=== PATIENT | female | born 1930 | race Caucasian/White ===

== ENCOUNTER → 2016-07-04 | Outpatient (CLI) | payer MEDICARE, OTHER ==
[2016-07-04 13:32] LABS: AUTOMATED NEUTROPHIL # 2.9 TH/MM3 (1.8-7.7); BASOPHIL # 0.1 TH/MM3 (0-0.2); BASOPHIL % 1.2 % (0.0-2.0); EOSINOPHIL # 0.4 TH/MM3 (0-0.4); EOSINOPHIL % 5.9 % (0.0-4.0); HEMATOCRIT 32.8 % (35.0-46.0); HEMO FLAGS DIFF FINAL; LYMPH % 33.2 % (9.0-44.0); MEAN CELL VOLUME 82.7 FL (80.0-100.0); MEAN CORPUSCULAR HEMOGLOBIN 27.6 PG (27.0-34.0); MEAN CORPUSCULAR HGB CONC 33.4 % (32.0-36.0); MONO % 12.2 % (0.0-8.0); NEUT % 47.5 % (16.0-70.0); PLATELET COUNT 249 TH/MM3 (150-450); RED BLOOD COUNT 3.97 MIL/MM3 (4.00-5.30); WHITE BLOOD COUNT 6.1 TH/MM3 (4.0-11.0)
[2016-07-04 14:02] LABS: ALKALINE PHOSPHATASE 61 U/L (45-117); ALT (GPT) 21 U/L (10-53); ANION GAP 6 MEQ/L (5-15); AST (GOT) 23 U/L (15-37); BLOOD UREA NITROGEN 21 MG/DL (7-18); CHLORIDE 108 MEQ/L (98-107); GLOMERULAR FILTRATION RATE 44 ML/MIN (>89); GLUCOSE,FASTING 108 MG/DL (74-99); HDL CHOLESTEROL 45.4 MG/DL (40.0-60.0); LDL CHOLESTEROL 73 MG/DL (0-99); POTASSIUM 4.2 MEQ/L (3.5-5.1); SODIUM (NA) 141 MEQ/L (136-145); TOTAL BILIRUBIN ADULT 0.4 MG/DL (0.2-1.0)
[2016-07-04 15:59] LABS: HEMOGLOBIN A1a 1.3 %; HEMOGLOBIN A1b 0.9 %; HEMOGLOBIN Ao 82.3 %; HEMOGLOBIN F 1.2 %; HEMOGLOBIN LA1C 2.1 %; HEMOGLOBIN P3 4.3 %
== END ==
LOC: PLAB 09:10
PROVIDERS: ATTEND Family Medicine
DX: E78.2 Mixed hyperlipidemia (principal); N18.2 Chronic kidney disease, stage 2 (mild); E11.22 Type 2 diabetes mellitus with diabetic chronic kidney disease; E11.51 Type 2 diabetes mellitus with diabetic peripheral angiopathy without gangrene; E03.8 Other specified hypothyroidism
CPT/HCPCS: 36415; 80053; 80061; 83036; 84443; 85025

== ENCOUNTER → 2016-10-16 | Outpatient (CLI) | payer MEDICARE, OTHER ==
[2016-10-16 13:22] LABS: ANION GAP 7 MEQ/L (5-15); BICARBONATE 26.1 MEQ/L (21.0-32.0); BLOOD UREA NITROGEN 23 MG/DL (7-18); CHLORIDE 108 MEQ/L (98-107); GLOMERULAR FILTRATION RATE 42 ML/MIN (>89); GLUCOSE,FASTING 134 MG/DL (74-99); POTASSIUM 4.2 MEQ/L (3.5-5.1); SODIUM (NA) 141 MEQ/L (136-145)
[2016-10-16 13:33] LABS: FREE T4 1.07 NG/DL (0.76-1.46)
[2016-10-16 17:22] LABS: HEMOGLOBIN A1a 1.5 %; HEMOGLOBIN A1b 0.9 %; HEMOGLOBIN Ao 83.1 %; HEMOGLOBIN F 1.1 %; HEMOGLOBIN LA1C 2.4 %; HEMOGLOBIN P3 4.4 %
== END ==
LOC: PLAB 08:27
DX: E11.65 Type 2 diabetes mellitus with hyperglycemia (principal); E03.9 Hypothyroidism, unspecified
CPT/HCPCS: 36415; 80048; 83036; 84439; 84443; 84681

== ENCOUNTER → 2016-12-17 | Outpatient (CLI) | payer MEDICARE, OTHER ==
[2016-12-17 13:18] LABS: AUTOMATED NEUTROPHIL # 4.1 TH/MM3 (1.8-7.7); BASOPHIL # 0.1 TH/MM3 (0-0.2); BASOPHIL % 1.3 % (0.0-2.0); EOSINOPHIL # 0.4 TH/MM3 (0-0.4); HEMATOCRIT 35.9 % (35.0-46.0); HEMO FLAGS DIFF FINAL; LYMPH % 30.5 % (9.0-44.0); LYMPHOCYTE # 2.4 TH/MM3 (1.0-4.8); MEAN CELL VOLUME 84.9 FL (80.0-100.0); MEAN CORPUSCULAR HEMOGLOBIN 27.4 PG (27.0-34.0); MEAN CORPUSCULAR HGB CONC 32.2 % (32.0-36.0); MONO % 9.7 % (0.0-8.0); NEUT % 53.5 % (16.0-70.0); PLATELET COUNT 258 TH/MM3 (150-450); RED BLOOD COUNT 4.23 MIL/MM3 (4.00-5.30); RED CELL DISTRIBUTION WIDTH 16.2 % (11.6-17.2); WHITE BLOOD COUNT 7.7 TH/MM3 (4.0-11.0)
[2016-12-17 13:49] LABS: ANION GAP 8 MEQ/L (5-15); AST (GOT) 19 U/L (15-37); BLOOD UREA NITROGEN 23 MG/DL (7-18); CHLORIDE 109 MEQ/L (98-107); GLOMERULAR FILTRATION RATE 46 ML/MIN (>89); GLUCOSE,FASTING 112 MG/DL (74-99); POTASSIUM 4.3 MEQ/L (3.5-5.1); SODIUM (NA) 141 MEQ/L (136-145)
[2016-12-17 13:54] LABS: ALKALINE PHOSPHATASE 77 U/L (45-117); ALT (GPT) 18 U/L (10-53); HDL CHOLESTEROL 48.8 MG/DL (40.0-60.0); LDL CHOLESTEROL 73 MG/DL (0-99); TOTAL BILIRUBIN ADULT 0.6 MG/DL (0.2-1.0)
[2016-12-17 16:01] LABS: HEMOGLOBIN A1a 1.3 %; HEMOGLOBIN A1b 0.9 %; HEMOGLOBIN F 1.2 %; HEMOGLOBIN LA1C 2.3 %; HEMOGLOBIN P3 5.8 %
== END ==
LOC: PLAB 09:09
PROVIDERS: ATTEND Family Medicine
DX: I21.4 Non-ST elevation (NSTEMI) myocardial infarction (principal); E11.51 Type 2 diabetes mellitus with diabetic peripheral angiopathy without gangrene
CPT/HCPCS: 36415; 80053; 80061; 83036; 85025

== ENCOUNTER → 2017-01-24 | Outpatient (CLI) | payer MEDICARE, OTHER ==
[2017-01-24 14:05] LABS: ANION GAP 7 MEQ/L (5-15); BICARBONATE 26.9 MEQ/L (21.0-32.0); BLOOD UREA NITROGEN 20 MG/DL (7-18); CHLORIDE 107 MEQ/L (98-107); GLOMERULAR FILTRATION RATE 45 ML/MIN (>89); GLUCOSE,FASTING 87 MG/DL (74-99); POTASSIUM 4.1 MEQ/L (3.5-5.1); SODIUM (NA) 141 MEQ/L (136-145)
[2017-01-24 14:16] LABS: FREE T4 1.05 NG/DL (0.76-1.46)
[2017-01-24 16:02] LABS: HEMOGLOBIN A1a 1.6 %; HEMOGLOBIN A1b 0.9 %; HEMOGLOBIN Ao 83.1 %; HEMOGLOBIN F 1.2 %; HEMOGLOBIN P3 4.2 %
== END ==
LOC: PLAB 08:59
DX: E11.65 Type 2 diabetes mellitus with hyperglycemia (principal); E03.9 Hypothyroidism, unspecified
CPT/HCPCS: 36415; 80048; 83036; 84439; 84443

== ENCOUNTER → 2017-07-01 | Outpatient (CLI) | payer MEDICARE, OTHER ==
[2017-07-01 14:35] LABS: AUTOMATED NEUTROPHIL # 4.1 TH/MM3 (1.8-7.7); BASOPHIL # 0.1 TH/MM3 (0-0.2); BASOPHIL % 1.7 % (0.0-2.0); EOSINOPHIL # 0.3 TH/MM3 (0-0.4); EOSINOPHIL % 4.1 % (0.0-4.0); HEMATOCRIT 35.2 % (35.0-46.0); HEMOGLOBIN 11.7 GM/DL (11.6-15.3); LYMPH % 23.7 % (9.0-44.0); LYMPHOCYTE # 1.6 TH/MM3 (1.0-4.8); MEAN CELL VOLUME 85.9 FL (80.0-100.0); MEAN CORPUSCULAR HEMOGLOBIN 28.5 PG (27.0-34.0); MEAN CORPUSCULAR HGB CONC 33.1 % (32.0-36.0); MEAN PLATELET VOLUME 8.5 FL (7.0-11.0); MONO % 9.4 % (0.0-8.0); MONOCYTE # 0.6 TH/MM3 (0-0.9); NEUT % 61.1 % (16.0-70.0); PLATELET COUNT 280 TH/MM3 (150-450); RED CELL DISTRIBUTION WIDTH 15.1 % (11.6-17.2); WHITE BLOOD COUNT 6.7 TH/MM3 (4.0-11.0)
[2017-07-01 14:43] LABS: ALBUMIN 3.3 GM/DL (3.4-5.0); ALT (GPT) 24 U/L (10-53); AST (GOT) 26 U/L (15-37); BICARBONATE 23.9 MEQ/L (21.0-32.0); BLOOD UREA NITROGEN 17 MG/DL (7-18); CALCIUM 8.5 MG/DL (8.5-10.1); CHLORIDE 106 MEQ/L (98-107); CREATININE 1.23 MG/DL (0.50-1.00); GLOMERULAR FILTRATION RATE 41 ML/MIN (>89); GLUCOSE,FASTING 155 MG/DL (74-99); SODIUM (NA) 140 MEQ/L (136-145)
[2017-07-01 14:53] LABS: ALKALINE PHOSPHATASE 77 U/L (45-117); CHOLESTEROL 136 MG/DL (120-200); CHOLESTEROL/ HDL RATIO 3.06 RATIO; HDL CHOLESTEROL 44.3 MG/DL (40.0-60.0); LDL CHOLESTEROL 73 MG/DL (0-99); TOTAL BILIRUBIN ADULT 0.5 MG/DL (0.2-1.0); TOTAL PROTEIN 7.4 GM/DL (6.4-8.2); TRIGLYCERIDES 96 MG/DL (42-150)
[2017-07-01 16:42] LABS: HEMOGLOBIN A1C 7.5 % (4.3-6.0)
== END ==
LOC: PLAB 10:41
PROVIDERS: ATTEND Family Medicine
DX: I21.4 Non-ST elevation (NSTEMI) myocardial infarction (principal); E11.51 Type 2 diabetes mellitus with diabetic peripheral angiopathy without gangrene; E03.8 Other specified hypothyroidism
CPT/HCPCS: 36415; 80053; 80061; 83036; 84443; 85025

== ENCOUNTER → 2017-07-18 | Outpatient (CLI) | payer MEDICARE, OTHER ==
[2017-07-18 14:32] LABS: ALBUMIN 3.3 GM/DL (3.4-5.0); ALT (GPT) 17 U/L (10-53); AST (GOT) 18 U/L (15-37); BICARBONATE 27.4 MEQ/L (21.0-32.0); BLOOD UREA NITROGEN 19 MG/DL (7-18); CALCIUM 8.3 MG/DL (8.5-10.1); CHLORIDE 109 MEQ/L (98-107); CREATININE 1.28 MG/DL (0.50-1.00); GLOMERULAR FILTRATION RATE 40 ML/MIN (>89); GLUCOSE,FASTING 117 MG/DL (74-99); SODIUM (NA) 142 MEQ/L (136-145)
[2017-07-18 14:43] LABS: ALKALINE PHOSPHATASE 75 U/L (45-117); TOTAL BILIRUBIN ADULT 0.5 MG/DL (0.2-1.0); TOTAL PROTEIN 7.6 GM/DL (6.4-8.2)
== END ==
LOC: PLAB 10:17
DX: E11.9 Type 2 diabetes mellitus without complications (principal); E03.9 Hypothyroidism, unspecified
CPT/HCPCS: 36415; 80053; 84443; 84681